=== PATIENT | male | born 1970 | race Caucasian/White ===

== ENCOUNTER 2016-09-21 23:25 | Observation (INO) | payer OTHER ==
[2016-09-21 23:56] LABS: COLOR YELLOW; LEUKOCYTE ESTERASE,URINE NEGATIVE (NEGATIVE); NITRITE,URINE NEGATIVE (NEGATIVE)
[2016-09-21 23:57] LABS: MUCUS TRACE /lpf (NONE-1+)
--- NOTE | 2016-09-22 00:13 | EDPHY ---
H & P Smoking Status: Never smoked Time Seen by Provider: 09/21/16 23:33 HPI/ROS: CHIEF COMPLAINT: Abdominal pain, red urine HISTORY OF PRESENT ILLNESS: 46-year-old male presents to the emergency department by private vehicle complaining of worsening left upper quadrant abdominal pain. 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 The patient was started on Coumadin. He has been taking his medication as prescribed. He was started on hydroxyurea about 4 5 days ago and he just stopped this 3 days ago because he did not tolerate this medication. The patient has had pain in his left upper quadrant for several days and now he is having worsening pain. He feels that his abdomen is slightly more distended. He denies diarrhea. His lack of appetite. He has lost a significant amount of weight in the last several weeks. REVIEW OF SYSTEMS: Constitutional: No fever, no chills. Eyes: No double or blurry vision. ENT: No sore throat. Respiratory: No cough, no shortness of breath. Cardiac: No chest pain. Gastrointestinal: Abdominal pain as above. No vomiting or diarrhea. Genitourinary: reddish urine. No dysuria. Musculoskeletal: No neck or back pain. Skin: No rashes. Neurological: No headache. 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 Afebrile. No apparent distress. 135/83 , 92% on room air. Eyes: Pupils equal and round. Extraocular motions are all intact. ENT: Mouth: Mucous membranes moist. Respiratory: No wheezing, rhonchi, or rales, lungs are clear to auscultation. Cardiovascular: Regular rate and rhythm. Gastrointestinal: Abdomen is soft. He has tenderness with palpation in the left upper quadrant. Splenomegaly is noted. He is voluntarily guarding. No peritoneal signs. No CVA tenderness bilaterally. Neurological: Alert and oriented x 3, cranial nerves II through XII grossly intact Skin: Warm and dry, no rashes. Musculoskeletal: Nontender to palpate along the cervical, thoracic or lumbar spine. Neck is supple. Extremities: Full range of motion and no peripheral edema. Psychiatric: Patient is oriented X 3, there is no agitation. (Lissy Rojasrina Shannan) Constitutional: Initial Vital Signs Temperature (C) 37 C 09/21/16 23:28 Heart Rate 89 09/21/16 23:28 Respiratory Rate 12 09/21/16 23:28 Blood Pressure 135/83 H 09/21/16 23:28 O2 Sat (%) 92 09/21/16 23:28 O2 Delivery Mode Room Air Allergies/Adverse Reactions: No Known Allergies Allergy (Unverified 07/14/16 11:10) Home Medications: Medication Instructions Recorded Herbals/Supplements -Info Only 1 ea PO DAILY 07/14/16 Allopurinol [Allopurinol 300 MG 300 mg PO DAILY #0 tab 09/22/16 (RX)] Hydroxyurea [Hydrea 500 mg (*)] 500 mg PO DAILY #0 cap 09/22/16 Tramadol HCl 50 mg PO Q4 #50 tablet 09/22/16 Warfarin Sodium [Coumadin 5MG (*)] 5 mg PO SUMOTUWEFR@16 09/22/16 Warfarin Sodium [Coumadin 7.5MG 7.5 mg PO THSA@1600 09/22/16 (*)] Medical Decision Making - Diagnostics Imaging: CT imaging of the abdomen and pelvis reveals splenomegaly with 2 areas of infarct both in the anterior superior and anterior inferior aspect of the spleen. There is small fluid around the liver as well small fluid in the pelvis. This was reported to me by Dr. Win. (Lissy Rojasrina Shannan) ED Course/Re-evaluation: 05: I did meet and evaluate this patient. I did discuss at length his CT results and about his splenic infarct. I did recommend he least gets admitted today for observation to make sure his abdomen does continue to progress does not have further abdominal pain, further evaluation of a splenic infarct with Dr. Gallagher. After further discussion the patient did think about wanting to go home however he did agree to stay for observation today in hospital I think this is completely reasonable. At this time is hemodynamically stable no acute distress resting comfortably. (Elia Banda) 46-year-old male presents to the emergency department with worsening left upper quadrant abdominal pain and reddish colored urine. The patient has a history of essential thrombocythemia. He was started on hydroxyurea recently and did not tolerate this medication and stopped it on his own just a few days ago. He has been taking Coumadin as prescribed as well as a supplemental medication, [place] Jim[place]. Laboratory studies reveal elevated transaminases. INR is 2.8. Platelets are 709,000. I recommended CT imaging of the abdomen and pelvis given his worsening abdominal pain. I was concerned about possible splenic infarct. CT imaging of the abdomen and pelvis with IV contrast revealed 2 areas of infarct in the spleen in the anterior superior area in the anterior inferior area of the spleen. This was discussed with the on-call surgeon, Dr. Gallagher, who also evaluated the patient in the emergency department and will be happy to consult on this patient regarding possible splenectomy. The patient will be admitted to the hospitalist, Dr. Ewing. Patient tells me that he has not been able to eat anything because of his abdominal pain. He has lost a significant amount of weight over last several weeks because he is unable to eat. (Suzie Rojas) Differential Diagnosis: Including but not limited to bowel obstruction, splenic infarct, pancreatitis, hepatitis, dehydration (Suzie Rojas) - Data Points Laboratory Results: Laboratory Results 09/22/16 00:10 09/22/16 00:10 Medications Given: Discontinued Medications Hydromorphone HCl (Dilaudid) 0.5 mg IVP EDNOW ONE Stop: 09/22/16 01:46 Last Admin: 09/22/16 02:06 Dose: 0.5 mg Oxycodone HCl (Oxycodone Ir) 10 mg PO ONCE ONE Stop: 09/22/16 04:24 Last Admin: 09/22/16 04:25 Dose: 10 mg Oxycodone HCl (Oxycodone Ir) 5 - 10 mg PO Q3HRS PRN PRN Reason: Pain, Severe Able to Take PO Stop: 10/02/16 05:04 Last Admin: 09/22/16 15:46 Dose: 5 mg Warfarin Sodium (Coumadin) 5 mg PO SUMOTUWEFR@16 [facility] Stop: 03/21/17 15:59 Last Admin: 09/22/16 15:43 Dose: 5 mg Departure - Departure Disposition: [facility] Inpatient Acute Clinical Impression: Splenic infarct Abdominal pain Qualifiers: Abdominal location: left upper quadrant Qualifier Code: (R10.12) Left upper quadrant pain Condition: Fair
[2016-09-22 00:19] LABS: % IMMATURE GRANULYOCYTES 0.2 % (0.0-1.1); ABSOLUTE IMMATURE GRANULOCYTES 0.02 10^3/uL (0.00-0.10); ADD DIFF? NO; ADD MORPH? NO; ADD SCAN? NO; ATYPICAL LYMPHOCYTE FLAG 0 (0-99); FRAGMENT RBC FLAG 40 (0-99); HEMATOCRIT 39.7 % (40.0-51.0); HEMOGLOBIN 13.8 g/dL (13.7-17.5); LEFT SHIFT FLG 0 (0-99); LIPEMIA HEMOLYSIS FLAG 90 (0-99); MEAN CELL HEMOGLOBIN 26.7 pg (27.9-34.1); MEAN CELL HEMOGLOBIN CONCENTR. 34.8 g/dL (32.4-36.7); MEAN CELL VOLUME 76.9 fL (81.5-99.8); MEAN PLATELET VOLUME 11.5 fL (8.7-11.7); PLATELET CLUMPS FLAG 0 (0-99); PLATELET COUNT 706 10^3/uL (150-400); RED BLOOD CELL COUNT 5.16 10^6/uL (4.40-6.38); RED CELL DISTRIBUTION WIDTH 15.1 % (11.5-15.2)
[2016-09-22 00:31] LABS: ALANINE AMINOTRANSFERASE 257 IU/L (21-72); ALBUMIN 4.2 g/dL (3.5-5.0); ALKALINE PHOSPHATASE 413 IU/L (38-126); ANION GAP 15 mEq/L (8-16); ASPARTATE AMINOTRANSFERASE 97 IU/L (17-59); BILIRUBIN,TOTAL 2.3 mg/dL (0.1-1.4); BILIRUBIN-CONJUGATED 1.6 mg/dL (0.0-0.5); BILIRUBIN-UNCONJUGATED 0.7 mg/dL (0.0-1.1); CALCIUM 9.8 mg/dL (8.5-10.4); CARBON DIOXIDE 27 mEq/l (22-31); CHLORIDE 101 mEq/L (97-110); CREATININE 0.8 mg/dL (0.7-1.3); GLOMERULAR FILTRATION RATE > 60; GLUCOSE 105 mg/dL (70-100); POTASSIUM 4.4 mEq/L (3.5-5.2); SODIUM 143 mEq/L (134-144); TOTAL PROTEIN 7.1 g/dL (6.3-8.2)
[2016-09-22 00:41] LABS: INR 2.88 (0.83-1.16); PROTIME(PATIENT) 30.5 SEC (12.0-15.0)
[2016-09-22] MEDS ORDERED: IOPAMIDOL (ISOVUE-300) 100 ML BTL IV ONE (01:15)
[2016-09-22] MEDS ORDERED: HYDROmorphONE/DILAUDID 1 MG/ML SYR IVP ONE (01:45)
[2016-09-22] MEDS ORDERED: oxyCODONE IR 5 MG TAB PO ONE (04:23)
[2016-09-22 04:39] VITALS: RESP 16
[2016-09-22] MEDS ORDERED: LORazepam 0.5 MG TAB PO PRN (05:05)
[2016-09-22] MEDS ORDERED: ACETAMINOPHEN 325 MG TAB PO PRN (05:05)
[2016-09-22] MEDS ORDERED: ONDANSETRON DISINTEGRATING 4 MG TAB PO PRN (05:05)
[2016-09-22] MEDS ORDERED: ONDANSETRON 4 MG/2 ML VIAL IVP PRN (05:05)
[2016-09-22] MEDS ORDERED: HYDROmorphONE/DILAUDID 1 MG/ML SYR IVP PRN (05:05)
--- NOTE | 2016-09-22 05:18 | PDGENHP ---
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 Since last hospitalization patient had been initiated on systemic anticoagulation with Coumadin, although he has been having difficulty maintaining a therapeutic INR. About 4 days ago he began having increasing abdominal pain in the epigastrium radiating to the left upper quadrant described as dull achy and also throbbing pain. He increased his home Oxycone dosing, but continued to have pain which prompted him to come to the ED. Since June patient reports significant amount of unintentional weight loss due to loss of appetite and also early satiety with eating. With this acute pain he reports some nausea, but denies any vomiting, reports a normal bowel movement earlier in the day. He also denies any recent fevers or chills, headache, dizziness, vision changes, chest pain, shortness of breath. On arrival to the ED patient was afebrile and hemodynamically stable. Labs were significant for thrombocytosis, mild transaminitis. CT abdomen and pelvis was obtained and revealed persistent thrombosed portal vein, SMV and splenic veins and also new splenic infarcts with marked splenomegaly. Patient was given IV pain control and and surgery was contacted by the ED. Patient was then admitted to the hospital service for further management. Of note patient was started on hydroxyurea as an outpatient for treatment for his ET, however, he has recently discontinued this due to side effects of nausea , rash. History Information - Allergies/Home Medication List Allergies/Adverse Reactions: No Known Allergies Allergy (Unverified 07/14/16 11:10) Home Medications: Herbals/Supplements -Info Only 1 ea PO DAILY 07/14/16 [Last Taken Unknown] Hydrocodone/Acetaminophen [Bearden 5/325 (*)] 1 tab PO Q4 PRN 07/14/16 [Last Taken 07/13/16] I have personally reviewed and updated: family history, medical history, social history, surgical history - Past Medical History Additional medical history: essential thrombocythemia. portal, SM and splenic vein thrombosis on systemic anticoagulation - Surgical History Additional surgical history: Jaw corrective surgery - Family History Additional family history: M: ocular melanoma. F: CAD - Social History Smoking Status: Never smoked Alcohol Use: None Drug Use: None, Marijuana (for insomnia) Additional social history: Pt works in technology industry; lives with girlfriend and roommate. Review of Systems ROS: 10pt was reviewed & negative except for what was stated in HPI & below Physical Exam Temp Pulse Resp BP Pulse Ox 37 C 80 16 123/77 H 94 09/21/16 23:28 09/22/16 04:00 09/22/16 04:00 09/22/16 04:00 09/22/16 04:00 Constitutional: no apparent distress, appears nourished, not in pain Eyes: PERRL, anicteric sclera, EOMI Ears, Nose, Mouth, Throat: moist mucous membranes, hearing normal, ears appear normal, no oral mucosal ulcers Cardiovascular: regular rate and rhythym, no murmur, rub, or gallop, pulses symmetric bilaterally, No JVD, No edema Peripheral Pulses: 2+: dorsalis-pedis (R), dorsalis-pedis (L) Respiratory: no respiratory distress, no rales or rhonchi, clear to auscultation Gastrointestinal: normoactive bowel sounds, other (+BS, epigastric/LUQ tenderness to palpation, palpable splenomegaly) Genitourinary: no bladder fullness, no bladder tenderness Skin: warm, normal color, no fluctuance, rash (maculopapular rash on back), No mottled Musculoskeletal: full muscle strength, no muscle tenderness, normal joint ROM, no joint effusions Neurologic: AAOx3, sensation intact bilaterally, CN II-XII Intact, No weakness, No numbness Psychiatric: interacting appropriately, not anxious, not encephalopathic, thought process linear Lab Data & Imaging Review 09/22/16 00:10 09/22/16 00:10 WBC 9.77 10^3/uL (3.80-9.50) H 09/22/16 00:10 RBC 5.16 10^6/uL (4.40-6.38) 09/22/16 00:10 Hgb 13.8 g/dL (13.7-17.5) 09/22/16 00:10 Hct 39.7 % (40.0-51.0) L 09/22/16 00:10 MCV 76.9 fL (81.5-99.8) L 09/22/16 00:10 MCH 26.7 pg (27.9-34.1) L 09/22/16 00:10 MCHC 34.8 g/dL (32.4-36.7) 09/22/16 00:10 RDW 15.1 % (11.5-15.2) 09/22/16 00:10 Plt Count 706 10^3/uL (150-400) H 09/22/16 00:10 MPV 11.5 fL (8.7-11.7) 09/22/16 00:10 Neut % (Auto) 71.9 % (39.3-74.2) 09/22/16 00:10 Lymph % (Auto) 14.2 % (15.0-45.0) L 09/22/16 00:10 Crowley % (Auto) 9.2 % (4.5-13.0) 09/22/16 00:10 Eos % (Auto) 4.2 % (0.6-7.6) 09/22/16 00:10 Baso % (Auto) 0.3 % (0.3-1.7) 09/22/16 00:10 Nucleat RBC Rel Count 0.0 % (0.0-0.2) 09/22/16 00:10 Absolute Neuts (auto) 7.02 10^3/uL (1.70-6.50) H 09/22/16 00:10 Absolute Lymphs (auto) 1.39 10^3/uL (1.00-3.00) 09/22/16 00:10 Absolute Monos (auto) 0.90 10^3/uL (0.30-0.80) H 09/22/16 00:10 Absolute Eos (auto) 0.41 10^3/uL (0.03-0.40) H 09/22/16 00:10 Absolute Basos (auto) 0.03 10^3/uL (0.02-0.10) 09/22/16 00:10 Absolute Nucleated RBC 0.00 10^3/uL (0-0.01) 09/22/16 00:10 Immature Gran % 0.2 % (0.0-1.1) 09/22/16 00:10 Immature Gran # 0.02 10^3/uL (0.00-0.10) 09/22/16 00:10 PT 30.5 SEC (12.0-15.0) H 09/22/16 00:10 INR 2.88 (0.83-1.16) H 09/22/16 00:10 Sodium 143 mEq/L (134-144) 09/22/16 00:10 Potassium 4.4 mEq/L (3.5-5.2) 09/22/16 00:10 Chloride 101 mEq/L (97-110) 09/22/16 00:10 Carbon Dioxide 27 mEq/l (22-31) 09/22/16 00:10 Anion Gap 15 mEq/L (8-16) 09/22/16 00:10 BUN 18 mg/dL (7-23) 09/22/16 00:10 Creatinine 0.8 mg/dL (0.7-1.3) 09/22/16 00:10 Estimated GFR > 60 09/22/16 00:10 Glucose 105 mg/dL (70-100) H 09/22/16 00:10 Calcium 9.8 mg/dL (8.5-10.4) 09/22/16 00:10 Total Bilirubin 2.3 mg/dL (0.1-1.4) H 09/22/16 00:10 Conjugated Bilirubin 1.6 mg/dL (0.0-0.5) H 09/22/16 00:10 Unconjugated Bilirubin 0.7 mg/dL (0.0-1.1) 09/22/16 00:10 AST 97 IU/L (17-59) H 09/22/16 00:10 ALT 257 IU/L (21-72) H 09/22/16 00:10 Alkaline Phosphatase 413 IU/L (38-126) H 09/22/16 00:10 Total Protein 7.1 g/dL (6.3-8.2) 09/22/16 00:10 Albumin 4.2 g/dL (3.5-5.0) 09/22/16 00:10 Lipase 84.0 IU/L (23-300) 09/22/16 00:10 Urine Color YELLOW 09/21/16 23:35 Urine Appearance CLEAR 09/21/16 23:35 Urine pH 6.0 (5.0-7.5) 09/21/16 23:35 Ur Specific [place] 1.010 (1.002-1.030) 09/21/16 23:35 Urine Protein NEGATIVE (NEGATIVE) 09/21/16 23:35 Urine Ketones NEGATIVE (NEGATIVE) 09/21/16 23:35 Urine Blood NEGATIVE (NEGATIVE) 09/21/16 23:35 Urine Nitrate NEGATIVE (NEGATIVE) 09/21/16 23:35 Urine Bilirubin NEGATIVE (NEGATIVE) 09/21/16 23:35 Urine Urobilinogen NEGATIVE EU (0.2-1.0) 09/21/16 23:35 Ur Leukocyte Esterase NEGATIVE (NEGATIVE) 09/21/16 23:35 Urine RBC Not Reported 09/21/16 23:35 Urine WBC 1-3 /hpf (0-3) 09/21/16 23:35 Ur Epithelial Cells TRACE /lpf (NONE-1+) 09/21/16 23:35 Urine Mucus TRACE /lpf (NONE-1+) 09/21/16 23:35 Ur Culture Indicated? NOT INDICATED (NI) 09/21/16 23:35 Urine Glucose NEGATIVE (NEGATIVE) 09/21/16 23:35 Visualized and Interpreted imaging results: Yes Interpretation: CT abd/pelvis: persistent MPV, SMV and spenic vein thromboses, with new splenic infarcts Assessment & Plan Assessment: Patient is a 46-year-old male with history of recently diagnosed essential thrombocythemia complicated by portal, SM and splenic vein thromboses presents with acute onset abdominal pain, now found to have multiple splenic infarcts. Plan: # acute abdominal pain, acute splenic infarct Likely due to acute splenic infarcts/arterial thromboses. Patient does not have an acute abdomen on exam, no evidence of hemorrhage on CT. Will follow up surgery recs regarding indication for splenectomy or partial splenectomy. - pain control prn - f/u surgery recs # essential thrombocythemia, complicated by venous and now arterial thromboses Patient has been initiated on systemic anticoagulation since June, however he has been having difficulty maintaining a therapeutic INR, which could be reason for new thrombosis. On presentation today INR is therapeutic. Will need to assess surgery's recommendations regarding need for surgery in deciding whether not to continue Coumadin or initiate bridging therapy. Patient also reports that not tolerating hydroxyurea treatment. Will need to consult heme regarding fpc treatment (follows with Dr. Greenberg). - f/u heme and surgery consult recs - trend CBC, coags # dispo: admit to inpt service for > 2 MN stay # gen: regular diet DVT ppx: on coumadin Full code
[2016-09-22 08:44] LABS: % IMMATURE GRANULYOCYTES 0.4 % (0.0-1.1); ABSOLUTE IMMATURE GRANULOCYTES 0.04 10^3/uL (0.00-0.10); ADD DIFF? NO; ADD MORPH? NO; ADD SCAN? NO; ATYPICAL LYMPHOCYTE FLAG 10 (0-99); FRAGMENT RBC FLAG 20 (0-99); HEMATOCRIT 38.8 % (40.0-51.0); HEMOGLOBIN 13.2 g/dL (13.7-17.5); LEFT SHIFT FLG 0 (0-99); LIPEMIA HEMOLYSIS FLAG 90 (0-99); MEAN CELL HEMOGLOBIN 26.2 pg (27.9-34.1); MEAN CELL VOLUME 77.1 fL (81.5-99.8); MEAN PLATELET VOLUME 11.4 fL (8.7-11.7); PLATELET CLUMPS FLAG 0 (0-99); PLATELET COUNT 640 10^3/uL (150-400); RED BLOOD CELL COUNT 5.03 10^6/uL (4.40-6.38); RED CELL DISTRIBUTION WIDTH 15.2 % (11.5-15.2)
[2016-09-22 09:04] LABS: ALANINE AMINOTRANSFERASE 219 IU/L (21-72); ALBUMIN 3.8 g/dL (3.5-5.0); ALKALINE PHOSPHATASE 358 IU/L (38-126); ANION GAP 11 mEq/L (8-16); ASPARTATE AMINOTRANSFERASE 81 IU/L (17-59); BILIRUBIN,TOTAL 2.1 mg/dL (0.1-1.4); CALCIUM 9.3 mg/dL (8.5-10.4); CARBON DIOXIDE 28 mEq/l (22-31); CHLORIDE 102 mEq/L (97-110); CREATININE 0.7 mg/dL (0.7-1.3); GLOMERULAR FILTRATION RATE > 60; GLUCOSE 110 mg/dL (70-100); MAGNESIUM 1.8 mg/dL (1.6-2.3); POTASSIUM 4.5 mEq/L (3.5-5.2); SODIUM 141 mEq/L (134-144); TOTAL PROTEIN 6.4 g/dL (6.3-8.2)
[2016-09-22 09:05] LABS: INR 2.83 (0.83-1.16); PROTIME(PATIENT) 30.1 SEC (12.0-15.0)
[2016-09-22 09:11] LABS: BILIRUBIN-CONJUGATED 1.6 mg/dL (0.0-0.5); BILIRUBIN-UNCONJUGATED 0.5 mg/dL (0.0-1.1)
[2016-09-22 09:17] LABS: APTT 47.3 SEC (23.0-38.0)
[2016-09-22] MEDS: oxyCODONE IR 5 MG TAB PO PRN ×3 (10:47→15:46)
--- NOTE | 2016-09-22 11:10 | GCON ---
[f rep st] CONSULTATION DATE OF CONSULTATION: 09/22/2016 CHIEF COMPLAINT: Abdominal pain. HISTORY OF PRESENT ILLNESS: This is a 46-year-old male who presents to the emergency department with acute worsening abdominal pain. According to the patient, he has a history of essential thrombocyth emia for which he currently sees Hematology as an outpatient. He was recently diagnosed in June this year with acute portal and mesenteric vein thrombosis, and is currently maintained on Coumadin therapy. The patient states that approximately 4 days ago, he began having increasing abdominal kitty n in the epigastrium, radiating now to the left side greater than the right. He described it as dull and achy but occasionally throbbing. He does note that he had recently started his hydroxyurea, for treatment of his essential thrombocythemia, and promptly stopped this after having the worsening abd ominal pain. He stated that the pain persisted, which is why he presented here. On arrival in the E D, he was afebrile, and the pain resolved with narcotics. A CT scan was performed, which showed that his thrombosed portal vein persisted, however, now he did have some new splenic infarcts with underl chelsea known splenomegaly. I was asked to evaluate the patient for possible surgical candidacy for spl enectomy. On meeting the patient, he states that currently the narcotics are controlling his pain we ll. He continues to eat, although he has early satiety. He continues to have normal daily bowel fun ction. He denies having fevers or chills. PAST MEDICAL HISTORY: Significant for essential thrombocythemia, portal, superior mesenteric, and sp lenic vein thrombosis. SURGICAL HISTORY: History of jaw surgery. FAMILY HISTORY: Noncontributory. SOCIAL HISTORY: Denies smoking, denies tobacco use, however, does use occasional marijuana for insom r[place]. Denies illicit drug use. REVIEW OF SYSTEMS: A full 10-point review was performed, and unless explicitly stated above, is othe rwise negative. PHYSICAL EXAMINATION: VITAL SIGNS: Temperature 37, heart rate 80, blood pressure 123/77. He is 94% on room air. GENERAL: He is alert and oriented, in no acute distress. CV: He has a regular rate and rhythm without murmurs. LUNGS: Clear to auscultation. ABDOMEN: He has a palpable spleen on th e left side below the costal margin. He has minimal tenderness to this. He has no rebound tendernes s or guarding. EXTREMITIES: Warm and well perfused. LABORATORY DATA: Labs reviewed today show that he has a leukocytosis to 9.7. His H and H are stable at 14 and 39. He has an elevated platelet count to 706. CT scan was reviewed, which shows persiste nt splenic and portal vein thrombosis with splenomegaly which was known, however, he has some new lat eral splenic infarcts, which are likely causing his pain. ASSESSMENT AND PLAN: A 46-year-old male with essential thrombocythemia with acutely worsening abdomi nal pain. I did discuss with the patient his diagnosis and did relate him that more than likely the splenic infarcts were causing his pain. I discussed with him briefly the natural history of splenic infarcts and that usually these are self-limited and can be controlled with narcotics, however, that some patients do continue to have persistent pain. I did tell him that he would be a reasonable cand idate, once we reversed his anticoagulation, for splenectomy, if he so chooses, or if the pain persis ts and is no longer controlled with narcotics. He is hesitant to elect surgery as, again, this is no t a treatment for his underlying disorder, and would only be there to control the symptoms of the enl arging spleen and infarcts. I did tell him that it is not unreasonable to continue with his treatmen t and use narcotics as needed for the pain control, however, if he continues to have issues and would want to elect splenectomy, we could re-evaluate at that time. Thank you very much. /[id number]/MODL
[2016-09-22 11:28] VITALS: BP 112/66; PULSE 89; TEMP 98.6; O2SAT 93
--- NOTE | 2016-09-22 15:51 | GCON ---
[f rep st] CONSULTATION HEME/ONC CONSULTATION REASON FOR CONSULTATION: Essential thrombocytosis. RECOMMENDATIONS: 1. Restart hydroxyurea at 500 mg every other day. 2. Therapeutic anticoagulation with warfarin, please continue. 3. Allopurinol 300 mg a day. 4. Tramadol 50 mg 1-2 q.4 hours p.r.n. EXECUTIVE SUMMARY: The patient is a 46-year-old gentleman who was recently diagnosed with essential thrombocytosis by Dr. Greenberg, his regular oncologist. He is JAK2 positive and he presented with a portal vein thrombosis. He has ultimately consented to having treatment, but unfortunately came int o the hospital with extreme asthenia and so much so that he had difficulty and it took him "2 hours t o get out of bed to go to the bathroom." He is very weak overall and came into the hospital. He act ually had fairly good counts. He had a new CAT scan which shows some splenic infarcts but overall, a fter a day, he seems to be comfortable and doing well. At this time, he has a platelet count of arou nd 640,000, hemoglobin 13.2 and white count of 9.34. His chemistries are relatively unremarkable exc ept a bilirubin is 2.1. They do not have an LDH. I reassured the patient that he should remain on the Hydrea as it is the best choice for reducing the spleen size and reducing his left upper quadrant pain. That he could slowly walk on to the drug ove r the course of a month or two, but I would expect that his spleen would shrink in size as it almost always does and that his platelet count will slowly come down into an acceptable range, preferably ar ound 400,000 or so. And, by going slowly, we can reassure him that the B symptoms will resolve and t hat he will not become "toxic" from the treatment. There is no urgency that we shrink the spleen imm ediately and it may be the best way to get him "on to the drug." Other alternatives include anagreli de which I do not think will have much effect on the spleen size and Jakavi which has its own issues. I placed the patient on allopurinol to prevent kidney stones and I have asked him to follow up in [facility] a week. I gave him tramadol for his pain and he should do fine with just that. PAST MEDICAL HISTORY: Overall, Clemencia has had a pretty healthy life. He has never smoked cigarettes. He drinks alcohol sparingly. His mother has had a history of a choroidal melanoma, but is doing wel Dasient 14 years out. SOCIAL HISTORY: Reveals he is unmarried and has no children, although he has a significant other. REVIEW OF SYSTEMS: Reveals night sweats, fatigue, general malaise and some weight loss. He presents now for evaluation. ASSESSMENT: Resume Hydrea 500 mg every other day and slowly increase the dose to 1 a day next week. Will check his protime in a week and begin allopurinol. /[id number]/MODL
--- NOTE | 2016-09-22 15:57 | CT ---
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 Comparison: CT of June 2016. Technique: Axial computed tomographic images of the abdomen and pelvis were obtained with the unevent ful intravenous administration of 90 mL Isovue-300 contrast. No oral or rectal contrast, which limits the study. Dose reduction techniques were utilized. CT Abdomen Findings: Lung bases: Linear atelectasis in bilateral lower lobes without pleural effusion. Liver: Heterogenous liver with thrombosis of the main portal veins appearing worse since the previous study. The main portal vein as well as all of the intrahepatic right and left portal veins are throm bosed with heterogeneous hepatic parenchymal pattern. Thrombosis of the superior mesenteric vein and splenic vein are also noted. Biliary system: No bile duct dilation. Minimal pericholecystic fluid. Spleen: Spleen remains markedly enlarged measuring 13 x 7.9 cm in axial dimension and 22 cm in cephal ocaudal dimension with new regions of geometric infarctions involving the anterosuperior corner measu ring 6 x 4 cm and the anteroinferior corner measuring 5.5 x 5.5 cm. Pancreas: Edema of the pancreatic head, which may resent chronic focal pancreatitis or neoplasm, wilder lar to the previous study measuring at least 3.5 x 2.5 cm. No pancreatic ductal dilation. Adrenals: Normal. Kidneys: No obstruction or solid masses. Abdominal Aorta: No aneurysm. Moderate stool throughout the colon, consistent with constipation. No pneumoperitoneum. CT Pelvis Findings: Small amount of free fluid in the pelvis. Impression: 1. 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 2. Splenomegaly and new splenic infarcts since June 2016. Splenic vein thrombosis. 3. Heterogenous pancreatic head, which may represent chronic focal pancreatitis or neoplasm. No pancr eatic ductal dilation. 4. A small amount of ascites surrounding the gallbladder and in the pelvis. 5. Constipation. 6. Bilateral lower lobe probable atelectasis. Findings and recommendations discussed with Emergency Department physician, Suzie Rojas PA-C, at 0 315 hours today. Final report concurs with initial preliminary interpretation.
[2016-09-22] MEDS ORDERED: WARFARIN SODIUM 5 MG TAB PO SCH (16:00)
--- NOTE | 2016-09-22 16:51 | GDS ---
[f rep st] DISCHARGE SUMMARY DISCHARGE DIAGNOSES: 1. Essential thrombocytosis. 2. Splenic infarct. 3. Portal vein thrombosis. HISTORY: The patient is a 46-year-old male, recently diagnosed with essential thrombocytosis. He garland s been intolerant of hydroxyurea. He presented with increasing abdominal pain, and CT scan showed sp lenic infarctions. His INR was therapeutic for his recently diagnosed portal vein thrombosis. His p ain from the splenic infarcts was easily controlled on low doses of narcotics. He was seen in consultation by both General Surgery and Oncology. Splenectomy was offered to him as an option; however, not necessary at this time. Medical therapy with resumption of Hydrea is the bes t choice for reducing his spleen size and reducing his left upper quadrant pain. He has been intoler ant of the drug; however, Dr. Oswald talked to him at length about starting on it on an every-other- day basis, ramping it up back to daily over the next month. He also recommended allopurinol to preve nt kidney stones and tramadol for pain control. DISCHARGE MEDICATIONS: Please see computer record for full detailed list. New medications: 1. Hydroxyurea 500 mg every other day to ramp back up to every day over the next month under the dir ection of Dr. Greenberg. 2. Tramadol 50 mg every 4 hours as needed. 3. Allopurinol 300 mg p.o. daily. ADDITIONAL DISCHARGE INSTRUCTIONS: Follow up with Dr. Greenberg in 1 week for INR check, on warfarin. He has remained therapeutic throughout his hospitalization here. Please note, the patient was initially admitted to inpatient status, when it was thought he was going to have to undergo splenectomy; however, since that surgery is not occurring, he was stable for [facility] home after only 1 night, and switched back to Ob status. Patient was seen and examined by me on the day of discharge. /[id number]/MODL
[2016-09-26] MEDS ORDERED: WARFARIN SODIUM 7.5 MG TAB PO SCH (16:00)
== END 2016-09-22 16:00 | disposition home or self-care (01) ==
LOC: F3E 09-22 06:35
PROVIDERS: ADMIT Internal Medicine; ATTEND Internal Medicine
DX: D47.3 Essential (hemorrhagic) thrombocythemia (principal); D73.5 Infarction of spleen; I81 Portal vein thrombosis; R10.12 Left upper quadrant pain; R16.1 Splenomegaly, not elsewhere classified; D72.829 Elevated white blood cell count, unspecified; K86.89 Other specified diseases of pancreas; Z79.01 Long term (current) use of anticoagulants
CPT/HCPCS: 74177; 96374; 99285; G0378; J1170; Q9967

== ENCOUNTER → 2016-10-02 | Outpatient (CLI) | payer OTHER ==
--- NOTE | 2016-10-02 17:06 | US ---
Ultrasound of the Abdomen Complete History: Portal vein thrombosis, abnormal liver function tests. Splenomegaly, splenic infarcts. Comparison: CT September 22, 2016. Findings Gallbladder: Gallbladder sludge identified and mild gallbladder hydrops. No shadowing calculi, wall thickening, or pericholecystic fluid. Common bile duct is 8 mm in diameter, which is dilated. Liver: Diffusely heterogeneous hepatic parenchyma, which limits evaluation for focal masses. There is complete thrombosis of the main portal vein. However, the hepatic veins appear patent. Dilated i ntrahepatic ducts. Renal: Right kidney measures 11.6 x 5.5 x 3.9 cm and left kidney 12.1 x 6 x 5 cm, without hydronephr osis in either kidney. Spleen: The spleen is enlarged, measuring 22 x 17 x 9 cm. Pancreas: Heterogeneous, without peripancreatic fluid. Aorta: Visualized upper abdominal aorta demonstrates no aneurysm. IVC: Grossly patent. Impressions 1. Gallbladder sludge, with intrahepatic and extrahepatic biliary ductal dilation, possibly secondar y to distal common bile duct obstruction. No cholelithiasis. 2. Diffusely heterogeneous hepatic parenchyma, with thrombosed main portal vein. However, the hepat ic veins appear patent, without evidence of Budd-Chiari syndrome. Focal hepatic masses cannot be exc luded. 3. Splenomegaly. 4. Heterogeneous pancreas. Consider MRCP cholangiography, if clinically indicated. Findings and recommendations discussed with Dr. Greenberg at 1650 hours. Final report concurs with initial preliminary interpretation.
== END ==
LOC: FIMAGING 15:28
PROVIDERS: ATTEND Internal Medicine Hematology & Oncology
DX: K82.9 Disease of gallbladder, unspecified (principal); R16.1 Splenomegaly, not elsewhere classified; K86.9 Disease of pancreas, unspecified